=== PATIENT | female | born 1995 | race Caucasian/White ===

== ENCOUNTER 2020-10-20 23:19 | Emergency (ER) | payer MEDICAID ==
[~2020-10-20] VITALS: Ht 175.3 cm; Wt 54.4 kg
--- NOTE | 2020-10-20 23:20 | NUR ---
PT [facility]. TAKEN TO BED 7
[2020-10-20 23:22] VITALS: BP 100/68
--- NOTE | 2020-10-20 23:44 | NUR ---
PT SEEN AND DISCHARGED BY MD FARIAS.
--- NOTE | 2020-10-20 23:44 | NUR ---
PT COMING IN FOR OVERDOSE ON MUSHROOMS, PT STATED "I USUALLY TAKE 3 GRAMS AND TONIGHT I TOOK 6 GRAMS". DENIES ANY ATTEMPT TO HARM HERSELF. PT BECAME ANXIOUS AND FEARFUL AND THOUGHT SHE WAS GOING TO SO SHE CALLED 911. PT CALM AND COOPERATIVE AT THIS TIME, A/O X 4. PT PLACED IN BED, BED IN LOWEST POSITION AND SIDERAIL UP X 1. HX - ASTHMA NKA
[2020-10-20 23:48] VITALS: BP 100/68
--- NOTE | 2020-10-20 23:49 | NUR ---
Patient discharged with v/s stable. Written and verbal after care instructions given and explained. Patient verbalized understanding. Ambulatory with steady gait. All questions addressed prior to discharge. Advised to follow up with PMD.
== END 2020-10-20 23:49 | disposition home or self-care (01) ==
LOC: MED 23:19
DX: A05.9 Bacterial foodborne intoxication, unspecified (principal); J45.909 Unspecified asthma, uncomplicated; F12.10 Cannabis abuse, uncomplicated; Z88.1 Allergy status to other antibiotic agents
CPT/HCPCS: 99283